=== PATIENT | female | born 1965 | race Caucasian/White ===

== ENCOUNTER 2016-09-16 21:50 | Emergency (ER) | payer SELFPAY ==
[2016-09-16 21:51] VITALS: BMI 20.3
[2016-09-16] MEDS ORDERED: Albuterol-Ipratrop 3 mg / 0.5 (3 ml) UD ONE (21:59)
[2016-09-16 22:08] VITALS: BP 113/72; PULSE 87; RESP 16; TEMP 98; O2SAT 99
--- NOTE | 2016-09-17 00:20 | C.PDOC ---
History Of Present Illness Patient is a 50 year old female who presents to the ER with a complaint of left hip pain after she slipped and hit her left thigh on a side table. Patient report having pain when ambulating. Denies weakness or numbness. Time Seen by Provider: 09/16/16 22:12 Chief Complaint (Nursing): Lower Extremity Problem/Injury History Per: Patient History/Exam Limitations: no limitations Onset/Duration Of Symptoms: Hrs Current Symptoms Are (Timing): Still Present Recent travel outside of the [place]: No - Hip Description Of Injury: Fell Past Medical History Reviewed: Historical Data, Nursing Documentation, Vital Signs Vital Signs: Last Vital Signs Temp 98 F 09/16/16 22:05 Pulse 87 09/16/16 22:05 Resp 16 09/16/16 22:05 BP 113/72 09/16/16 22:05 Pulse Ox 99 09/17/16 01:53 - Medical History PMH: No Chronic Diseases Surgical History: No Surg Hx Family History: States: Unknown Family Hx - Social History Hx Tobacco Use: No Hx Alcohol Use: Yes Hx Substance Use: No - Immunization History Hx Tetanus Toxoid Vaccination: No Hx Influenza Vaccination: No Hx Pneumococcal Vaccination: No Review Of Systems Musculoskeletal: Positive for: Other (Left hip pain) Neurological: Negative for: Weakness, Numbness Physical Exam - Physical Exam Appears: Non-toxic Skin: Normal Color, Warm, Dry Head: Atraumatic, Normacephalic Oral Mucosa: Moist Gastrointestinal/Abdominal: Soft, Tenderness (Left suprapubic area ), No Other ( hematoma or ecchymosis ) Extremity: Tenderness (Left hip), No Deformity, No Swelling, No Other (Erythema , Ecchymosis) Extremity: Bilateral: Normal Color And Temperature Pulses: Left Dorsalis Pedis: Normal, Right Dorsalis Pedis: Normal Neurological/Psych: Oriented x3, Normal Speech, Normal Cognition, Normal Motor, Normal Sensation Gait: With Assistance ED Course And Treatment O2 Sat by Pulse Oximetry: 99 (Room air) Pulse Ox Interpretation: Normal - Other Rad Left Hip x-ray X-Ray: Interpreted by Me, Viewed By Me Interpretation: No acute fractures or dislocations. Progress Note: Left hip x-ray ordered. Toradol and tylenol administered. Patient is resting comfortably, and is in no acute distress. Patient was instructed to follow up with PMD in 1-2 days for further evaluation. Reassessment Condition: Improved (Pt ambulatory with steady gait) Disposition Counseled Patient/Family Regarding: Diagnosis, Need For Followup, Rx Given - Disposition Referrals: Shaik Ambrose MD [Staff Provider] - Disposition: HOME/ ROUTINE Disposition Time: 00:16 Condition: STABLE Additional Instructions: Follow up with PMD in 2 days for reeval Take medications as prescribed Return to ER if worse Prescriptions: Naproxen [Naprosyn] 500 mg PO BID #20 tablet Instructions: Hip Contusion (ED) Forms: Accompanied To ED By: Print Language: VIET[place]ESE - Clinical Impression Clinical Impression: Contusion, hip - Scribe Statement The provider has reviewed the documentation as recorded by the Scribe Royal Liao All medical record entries made by the Johnathonibdara were at my direction and personally dictated by me. I have reviewed the chart and agree that the record accurately reflects my personal performance of the history, physical exam, medical decision making, and the department course for this patient. I have also personally directed, reviewed, and agree with the discharge instructions and disposition.
--- NOTE | 2016-09-17 08:55 | RAD ---
PROCEDURE: HISTORY: Pain, fall,left hip COMPARISON: None TECHNIQUE: AP view of the pelvis and applicable frog leg views obtained. FINDINGS: No fracture dislocation. Bilateral superolateral hip joint space narrowing. Bilateral hemipelvic phleboliths. It stool retention IMPRESSION: No fracture. Mild degenerative joint space narrowing. Other findings as above
== END 2016-09-17 00:24 | disposition home or self-care (01) ==
LOC: C.ER 21:50
DX: S70.02XA Contusion of left hip, initial encounter (principal); W18.49XA Other slipping, tripping and stumbling without falling, initial encounter; Y92.009 Unspecified place in unspecified non-institutional (private) residence as the place of occurrence of the external cause
CPT/HCPCS: 73502; 96372; 99284; J1885